=== PATIENT | female | born 1995 | race Native Hawaiian/Other Pacific Islander ===

== ENCOUNTER 2018-11-07 15:56 | Outpatient (CLI) | payer OTHER, SELFPAY ==
[2018-11-07 16:36] VITALS: BP 124/72; RESP 95; O2SAT 100; BMI 28.4
[2018-11-07 16:47] LABS: Microscopic, Urine URINE MICROSCOPIC (MICROSCOPIC)
[2018-11-07 16:50] LABS: Appearance,Urine CLOUDY (Clear); Blood, Urine Negative (Negative); Color,Urine YELLOW (Yellow); Glucose,Urine (UA) Negative (Negative); Ketones,Urine TRACE (Negative); Leukocyte Esterase,Urine TRACE (Negative); Nitrate,Urine Negative (Negative); PH,Urine 6.5 (5.0-8.5); Protein,Urine TRACE (Negative); Specific Gravity, Urine 1.025 (1.005-1.030)
[2018-11-07 17:00] LABS: Fetal Membrane Rupture (Rapid) Negative (Negative)
[2018-11-07 17:05] LABS: Bilirubin,Urine Negative (Negative)
--- NOTE | 2018-11-07 17:29 | P.PN_ITS ---
Internal Medicine - PN: Subj *Date: 11/07/18 (N) Interval history: She is a 23-year-old 4 para 3 who is 31 weeks gestational age. She says that for the last couple of weeks she has been having some contractions. She is being seen in [place] for her . She said she came here because it is closer than [place]. She lives in [place]. Her nonstress test is reactive and she was having regular contractions on arrival. She received 1 dose of Brethine as well as an IV bolus of fluid and this seemed to help with her contractions. We will also give her steroids. She will return for her second dose tomorrow. Exam Vital signs and Labs for Last 24 Hours: Resp BP Pulse Ox 95 H 124/72 100 11/07/18 16:36 11/07/18 16:36 11/07/18 16:36 Laboratory Results - last 24 hr 11/07/18 16:13: Urine Color Yellow, Urine Appearance Cloudy, Urine pH 6.5, Ur Specific Halliday 1.025, Urine Protein Trace, Urine Glucose (UA) Negative, Urine Ketones Trace, Urine Blood Negative, Urine Nitrate Negative, Urine Bilirubin Negative, Urine Urobilinogen 1.0, Ur Leukocyte Esterase Trace 11/07/18 16:13: Membrane Rupture Negative I & O for Last 24 hours: Intake & Output 11/05/18 11/06/18 11/07/18 11/08/18 11:59 11:59 11:59 11:59 Weight 176 lb - Constitutional no acute distress - *Routine HEENT Exam Head: Present: normocephalic Eye: Present: EOMI, PERRL ENT: Present: mucous membranes moist - *Routine Neck Exam Present: supple, full ROM - *Routine Respiratory Exam Absent: accessory muscle use (good air entry bilaterally), wheezes, crackles - *Routine Cardiovascular Exam Present: RRR. Absent: murmur - *Routine Abdominal Exam Present: soft, normoactive bowel sounds. Absent: tenderness, rebound, guarding, mass - *Routine Rectal Exam Patient deferred: visual exam, digital exam - *Routine Exam Patient deferred: external exam, groin exam, perineal exam - *Routine Extremities Exam Present: full ROM. Absent: cyanosis, edema, calf tenderness - *Routine Skin Exam Present: intact (good color) - *Routine Neurological Exam Present: alert, oriented X3 - Routine Psychiatric Exam Present: normal affect Assessment and Plan (1) labor in third trimester Current visit: Yes Status: Acute Category: Medical Code(s): O60.03 - labor without delivery, third trimester - Assessment and plan all Dx Assessment and Plan for all problems:: She was having some regular contractions on the monitor and these have now settled mostly. We are going to get a CBC and Chem-7 since she does feel some dizziness. We will check her hemoglobin. Her blood pressure is normal. Her cervix is 2 cm 75% -2. She has received 1 dose of steroids and she will return tomorrow for her second dose of steroids. I will give her a prescription for nifedipine to take 10 mg up to 4 times daily. Hopefully this should help with her contractions. We will have her back tomorrow for a nonstress test as well as her second steroid injection. 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
[2018-11-07 17:32] LABS: Fetal Fibronectin (Rapid) Negative (Negative)
[2018-11-07 17:53] LABS: WBC,Urine Occasional #/hpf (0-3)
[2018-11-07 17:54] LABS: Bacteria,Urine 2+ /lpf; Mucus,Urine 2+ /lpf
[2018-11-07 18:05] LABS: Basophils % 0.3 % (0.1-2.0); Eosinophils # 0.3 K/mm3 (0.0-0.4); Eosinophils % 3.9 % (0.1-12.0); Hematocrit 28.9 % (37.0-47.0); Lymphocytes # 2.2 K/mm3 (0.7-4.5); Lymphocytes % 29.2 % (10-50); Mean Corpuscular HGB Conc 31.1 g/dL (31.8-35.4); Mean Corpuscular Volume 86.6 fl (81-99); Mean Platelet Volume 7.2 fl (7.4-10.4); Monocytes # 0.4 K/mm3 (0.1-1.0); Monocytes % 4.8 % (1.7-9.3); Neutrophils # 4.7 K/mm3 (1.8-7.8); Neutrophils % 61.8 % (37.0-80.0); Platelet Count 440 K/mm3 (142-424); Red Blood Count 3.34 M/mm3 (4.20-5.40); Red Cell Distribution Width 12.9 % (11.5-17.5); White Blood Count 7.5 K/mm3 (4.8-10.8)
[2018-11-07 18:14] LABS: Alanine Aminotransferase 15 U/L (12-78); Albumin Level 2.6 gm/dL (3.4-5.0); Albumin/Globulin Ratio 0.6 (1.1-1.8); Alkaline Phosphatase 161 U/L (46-116); Anion Gap 14.7 mEq/L (5-15); Aspartate Amino Transferase 13 U/L (15-37); Bilirubin,Total 0.5 mg/dL (0.2-1.0); Blood Urea Nitrogen 6 mg/dL (7-18); Carbon Dioxide 22 mmol/L (21.0-32.0); Chloride 104 mmol/L (98-107); Creatinine Clearance Estimated 185 mL/min (50-200); Estimated Glomerular Filt Rate 125 ml/min (>60); GFR (African American) 151 ML/MIN (>60); Globulin 4.1 gm/dl (1.3-3.2); Glucose 106 mg/dL (74-106); Sodium 138 mmol/L (136-145); Total Protein,Serum 6.7 gm/dL (6.4-8.2)
[2018-11-07 18:16] LABS: Potassium 2.7 mmoL/L (3.5-5.1)
== END 2018-11-07 18:25 | disposition home or self-care (01) ==
LOC: OBOUT 16:00 → OB 16:04
PROVIDERS: PCP Nurse Practitioner Obstetrics & Gynecology; Visit Provider Nurse Practitioner Obstetrics & Gynecology
DX: O47.03 False labor before 37 completed weeks of gestation, third trimester (principal); Z3A.31 31 weeks gestation of pregnancy
CPT/HCPCS: 36415; 59025; 80053; 81001; 82731; 84112; 85025; 87086; 96360; 96372

== ENCOUNTER 2018-11-08 15:59 | Outpatient (CLI) | payer OTHER, SELFPAY ==
[2018-11-08 16:32] VITALS: BP 115/73; PULSE 105; RESP 20; TEMP 37; O2SAT 100; BMI 28.4
== END 2018-11-08 16:50 | disposition home or self-care (01) ==
LOC: OBOUT 16:01 → OB 16:01
PROVIDERS: PCP Family Medicine; Visit Provider Obstetrics & Gynecology
DX: O47.00 False labor before 37 completed weeks of gestation, unspecified trimester (principal); Z3A.31 31 weeks gestation of pregnancy
CPT/HCPCS: 59025; 96372

== ENCOUNTER 2018-11-09 22:28 | Outpatient (CLI) | payer OTHER, SELFPAY ==
[2018-11-09 22:38] VITALS: BMI 28.4
[2018-11-09 22:59] VITALS: BMI 28.4
[2018-11-09 23:04] LABS: Amphetamine/Metha Screen,Urine Negative ng/mL (<1000); Barbiturates Screen,Urine Negative ng/mL (<200); Benzodiazepines Screen,Urine Negative ng/mL (<200); Cannabinoid Screen,Urine Negative ng/mL (<50); Cocaine Screen,Urine Negative ng/mL (<300); Methadone Screen,Urine Negative ng/mL (<300); Opiate Screen,Urine Negative ng/mL (<300); Phencyclidine Screen,Urine Negative ng/mL (<25)
[2018-11-09 23:30] LABS: Fetal Fibronectin (Rapid) Negative (Negative); Fetal Membrane Rupture (Rapid) Negative (Negative)
== END 2018-11-10 00:50 | disposition home or self-care (01) ==
LOC: OBOUT 22:31 → OB 22:31
PROVIDERS: Visit Provider Obstetrics & Gynecology
DX: O47.00 False labor before 37 completed weeks of gestation, unspecified trimester (principal); Z3A.31 31 weeks gestation of pregnancy
CPT/HCPCS: 59025; 80305; 82731; 84112; 96372

== ENCOUNTER 2018-12-15 17:53 | Outpatient (CLI) | payer OTHER, SELFPAY ==
[2018-12-15 18:25] VITALS: BP 138/94; PULSE 115; RESP 20; TEMP 36.7; O2SAT 100; BMI 27.4
[2018-12-15 18:30] LABS: Microscopic, Urine URINE MICROSCOPIC (MICROSCOPIC)
[2018-12-15 18:41] LABS: Appearance,Urine SL CLOUDY (Clear); Bilirubin,Urine Negative (Negative); Blood, Urine Negative (Negative); Color,Urine YELLOW (Yellow); Glucose,Urine (UA) Negative (Negative); Ketones,Urine Negative (Negative); Leukocyte Esterase,Urine TRACE (Negative); Nitrate,Urine Negative (Negative); Protein,Urine Negative (Negative); Specific Gravity, Urine 1.025 (1.005-1.030)
[2018-12-15 18:46] LABS: Amorphous Sediment,Urine 4+ /lpf; Amphetamine/Metha Screen,Urine Negative ng/mL (<1000); Barbiturates Screen,Urine Negative ng/mL (<200); Benzodiazepines Screen,Urine Negative ng/mL (<200); Cannabinoid Screen,Urine Negative ng/mL (<50); Cocaine Screen,Urine Negative ng/mL (<300); Methadone Screen,Urine Negative ng/mL (<300); Mucus,Urine 1+ /lpf; Opiate Screen,Urine Negative ng/mL (<300); Phencyclidine Screen,Urine Negative ng/mL (<25); Squamous Epithelial Cell,Urine 20-50 #/hpf (0-5)
[2018-12-15 18:56] LABS: Fetal Membrane Rupture (Rapid) Negative (Negative)
== END 2018-12-15 19:04 | disposition home or self-care (01) ==
LOC: OBOUT 17:57 → OB 17:58
PROVIDERS: PCP Family Medicine; Visit Provider Obstetrics & Gynecology
DX: O47.03 False labor before 37 completed weeks of gestation, third trimester (principal); Z3A.36 36 weeks gestation of pregnancy
CPT/HCPCS: 59025; 80305; 81001; 84112